=== PATIENT | female | born 1960 | race Caucasian/White ===

== ENCOUNTER 2022-10-08 10:07 | Emergency (ER) | payer OTHER ==
[~2022-10-08] VITALS: Ht 160 cm; Wt 109.3 kg
[2022-10-08] MEDS ORDERED: ATORVASTATIN (10:38)
[2022-10-08] MEDS ORDERED: LISINOPRIL (10:38)
[2022-10-08] MEDS ORDERED: DILTIAZEM (10:38)
[2022-10-08] MEDS ORDERED: HYDR25TA4 PO (10:38)
[2022-10-08] MEDS ORDERED: ASPI81TA31 PO (10:38)
--- NOTE | 2022-10-08 10:44 | NUR ---
Patient ambulated to room #2 with sling applied to right arm s/p trip and fall yesterday. Patient is alert and oriented x4, with c/o pain to her right shoulder. No s/s of any distress noted, ER provider at bedside for exam, patiet informed of plan of care at this time, will continue to monitor.
[2022-10-08] MEDS ORDERED: HYDROCODONE/APAP 5-325MG TABLET ONE (10:52)
--- NOTE | 2022-10-08 10:55 | NUR ---
Patient medicated as per order for pain, sitting up in bed awaiting radiology exam.
[2022-10-08] MEDS ORDERED: HYDROCODONE/APAP 5-325MG TABLET PO ONE (11:00)
--- NOTE | 2022-10-08 11:13 | NUR ---
Radiology at bedside at this time.
[2022-10-08] MEDS ORDERED: MORPHINE SULFATE 4 MG/1 ML DISP.SYRIN IV ONE (11:30)
[2022-10-08] MEDS ORDERED: PROPOFOL 200 MG/20 ML BOTTLE IV ONE ×2 (11:30→17:15)
[2022-10-08] MEDS ORDERED: PROPOFOL 200 MG/20 ML BOTTLE ONE (11:47)
[2022-10-08] MEDS ORDERED: MORPHINE SULFATE 4 MG/1 ML DISP.SYRIN ONE (11:48)
--- NOTE | 2022-10-08 12:56 | NUR ---
See paper charting for sedation, Patient feels much better and has returned to baseline. Family at bedside. Patient has been up ambulated to bathroom and back to bed. ACI given, HL removed remains stable for discharge home with family.
[2022-10-08 13:18] VITALS: BP 146/72
== END 2022-10-08 13:19 | disposition home or self-care (01) ==
LOC: ER 10:15
DX: S43.004A Unspecified dislocation of right shoulder joint, initial encounter (principal); I10 Essential (primary) hypertension; Z86.73 Personal history of transient ischemic attack (TIA), and cerebral infarction without residual deficits; Z88.0 Allergy status to penicillin; Z91.013 Allergy to seafood; Z79.82 Long term (current) use of aspirin; Z79.899 Other long term (current) drug therapy; W01.0XXA Fall on same level from slipping, tripping and stumbling without subsequent striking against object, initial encounter; Y93.89 Activity, other specified; Y92.89 Other specified places as the place of occurrence of the external cause; Y99.8 Other external cause status
CPT/HCPCS: 99285; 23650; 96374; 73030 ×2; 99152; J2270; A4663; G0500; J3490